=== PATIENT | female | born 1975 | race Caucasian/White ===

== ENCOUNTER 2022-09-02 18:22 | Emergency (ER) | payer MEDICAID, OTHER ==
--- NOTE | 2022-09-02 18:31 | ERPHSYRPT ---
- History of Present Illness Time Seen by Provider: 09/02/22 18:31 Historian: patient Exam Limitations: no limitations Physician History: This is a 47-year-old white female patient who was having intermittent chest pain all day as well as elevated blood pressure. The chest pain has resolved. Her blood pressure was as high as 178/98 with a pulse of 118. Patient does smoke cigarettes daily and she does consume daily caffeine. She has not increased her tobacco or caffeine intake. Patient denies cocaine use. Patient denies amphetamine use. Patient does have a past history of hypertension and was given lisinopril as a prescription. However, she describes having a reaction of angioedema on that medication. She currently is not on any medication for blood pressure. Patient denies shortness of breath at this time. She has no abdominal pain. Patient does states she is under a lot of stress. Timing/Duration: today Quality: tightness Chest Pain Radiation: no radiation Severity of Pain-Max: mild Severity of Pain-Current: none (Moderate) Modifying Factors: Improves With: nothing Associated Symptoms: palpitations, No nausea, No vomiting Prior Chest Pain/Cardiac Workup: no prior chest pain, no prior cardiac workup Nitro Today/Relief: no nitro taken today Aspirin Treatment Today: no aspirin today Allergies/Adverse Reactions: Penicillins Allergy (Verified 09/02/22 18:25) Home Medications: No Reportable Medications [No Reported Medications] 09/02/22 [History] Travel Risk - International Travel Have you traveled outside of the country in past 3 weeks: No - Coronavirus Screening Are you exhibiting any of the following symptoms?: No Close contact with a COVID-19 positive Pt in past 14-21 Days: No - Review of Systems Constitutional: No Symptoms Eyes: No Symptoms Ears, Nose, & Throat: No Symptoms Respiratory: No Symptoms Cardiac: Chest Pain, Palpitations Abdominal/Gastrointestinal: No Symptoms Genitourinary Symptoms: No Symptoms Musculoskeletal: No Symptoms Skin: No Symptoms Neurological: No Symptoms Psychological: Anxiety, Other (Patient is under a lot of stress) Endocrine: No Symptoms Hematologic/Lymphatic: No Symptoms Immunological/Allergic: No Symptoms All Other Systems: Reviewed and Negative - Past Medical History Pertinent Past Medical History: Yes - Nursing Vital Signs Nursing Vital Signs: Initial Vital Signs Temperature 99.1 F 09/02/22 18:26 Pulse Rate 127 H 09/02/22 18:26 Respiratory Rate 18 09/02/22 18:26 Blood Pressure 174/84 09/02/22 18:26 O2 Sat by Pulse Oximetry 100 09/02/22 18:26 Pain Scale Pain Intensity 0 - Physical Exam General Appearance: no apparent distress, alert, anxiety Eye Exam: PERRL/EOMI, eyes nml inspection Ears, Nose, Throat Exam: normal ENT inspection, moist mucous membranes Neck Exam: normal inspection, non-tender, supple, full range of motion Respiratory Exam: normal breath sounds, lungs clear, airway intact, No chest tenderness, No respiratory distress Cardiovascular Exam: tachycardia Gastrointestinal/Abdomen Exam: soft, normal bowel sounds, No tenderness Pelvic Exam: not done Rectal Exam: not done Back Exam: normal inspection, normal range of motion, No CVA tenderness, No vertebral tenderness Extremity Exam: normal inspection, normal range of motion, pelvis stable Neurologic Exam: alert, oriented x 3, cooperative, 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, normal mood/affect, nml cerebellar function, nml station & gait, sensation nml Skin Exam: normal color, warm, dry Lymphatic Exam: No adenopathy SpO2 Interpretation: normal O2 Delivery: Room Air - Course Nursing assessment & vital signs reviewed: Yes EKG Interpreted by Me: RATE (125), Sinus Tach, NORMAL AXIS, NORMAL INTERVALS, NORMAL QRS, NORMAL ST-T, Other Ordered Tests: Active Orders 24 hr Category Date Time Status Director Of Security STAT Care 09/02/22 18:41 Active EKG-ER Only STAT Care 09/02/22 18:41 Active IV Insertion STAT Care 09/02/22 18:41 Active Pulse Oximetry (ED) STAT Care 09/02/22 18:41 Active CHEST 1 VIEW (PORTABLE) Stat Exams 09/02/22 18:41 Taken CBC W DIFF Stat Lab 09/02/22 19:05 Completed CMP Stat Lab 09/02/22 19:05 Completed D-DIMER QUANTITATIVE Stat Lab 09/02/22 19:05 Completed TROPONIN Q4H Lab 09/02/22 19:05 Completed TROPONIN Q4H Lab 09/02/22 22:45 Ordered TROPONIN Q4H Lab 09/03/22 02:45 Ordered Medication Summary Generic Name Dose Route Start Last Admin Trade Name Freq PRN Reason Stop Dose Admin Potassium Chloride 20 meq 09/02/22 19:51 Potassium Chloride Tab 10 Meq Tab PO 09/02/22 19:52 STAT ONE Discontinued Medications Generic Name Dose Route Start Last Admin Trade Name Kira PRN Reason Stop Dose Admin Aspirin 324 mg 09/02/22 18:41 09/02/22 19:14 Aspirin 81 Mg Tab.Chew PO 09/02/22 18:42 324 mg STAT ONE Administration Aspirin Confirm 09/02/22 19:13 Aspirin 81 Mg Tab.Chew Administered 09/02/22 19:14 Dose 324 mg .ROUTE .STK-MED ONE Labetalol HCl 10 mg 09/02/22 19:13 09/02/22 19:31 Labetalol Hcl 20 Mg/4 Ml Disp.Syringe IV 09/02/22 19:14 10 mg STAT ONE Administration Labetalol HCl Confirm 09/02/22 19:28 Labetalol Hcl 20 Mg/4 Ml Disp.Syringe Administered 09/02/22 19:29 Dose 20 mg IV .STK-MED ONE Lorazepam 1 mg 09/02/22 19:14 09/02/22 19:30 Lorazepam 2 Mg/1 Ml 2 Mg Vial IV 09/02/22 19:15 1 mg STAT ONE Administration Lorazepam Confirm 09/02/22 19:27 Lorazepam 2 Mg/1 Ml 2 Mg Vial Administered 09/02/22 19:28 Dose 2 mg .ROUTE .STK-MED ONE Lab/Rad Data: Laboratory Result Diagrams 09/02/22 19:05 09/02/22 19:05 Laboratory Results 09/02/22 09/02/22 09/02/22 Range/Units 19:05 19:05 19:05 WBC (4.0-10.5) x10^3/uL RBC (4.1-5.4) x10^6/uL Hgb (12.0-16.0) g/dL Hct (35-47) % MCV (78-100) fL MCH (26-32) pg MCHC (32-36) g/dL RDW (11.5-14.0) % Plt Count (150-450) x10^3/uL MPV (7.5-11.0) fL Gran % (36.0-66.0) % Immature Gran % (Auto) (0.00-0.4) % Nucleat RBC Rel Count (0.00-0.1) % Eos # (Auto) (0-0.5) x10^3/uL Immature Gran # (Auto) (0.00-0.03) x10^3u/L Absolute Lymphs (auto) (1.0-4.6) x10^3/uL Absolute Monos (auto) (0.0-1.3) x10^3/uL Absolute Nucleated RBC (0.00-0.01) x10^3u/L Lymphocytes % (24.0-44.0) % Monocytes % (0.0-12.0) % Eosinophils % (0.00-5.0) % Basophils % (0.0-0.4) % Absolute Granulocytes (1.4-6.9) x10^3/uL Basophils # (0-0.4) x10^3/uL D-Dimer 0.28 (0.0-0.50) mg/L Sodium 139 (137-145) mmol/L Potassium 3.2 L (3.5-5.1) mmol/L Chloride 107 (98-107) mmol/L Carbon Dioxide 19 L (22-30) mmol/L Anion Gap 16.9 H (5-15) MEQ/L BUN 10 (7-17) mg/dL Creatinine 0.68 (0.52-1.04) mg/dL Estimated GFR > 60.0 ML/MIN Glucose 105 (74-106) mg/dL Calcium 9.9 (8.4-10.2) mg/dL Total Bilirubin 1.70 H (0.2-1.3) mg/dL AST 22 (14-36) U/L ALT 19 (0-35) U/L Alkaline Phosphatase 111 (38-126) U/L Troponin I < 0.012 (0.000-0.034) ng/mL Serum Total Protein 8.3 H (6.3-8.2) g/dL Albumin 4.6 (3.5-5.0) g/dL 09/02/22 Range/Units 19:05 WBC 13.9 H (4.0-10.5) x10^3/uL RBC 5.51 H (4.1-5.4) x10^6/uL Hgb 15.8 (12.0-16.0) g/dL Hct 47.6 H (35-47) % MCV 86.4 (78-100) fL MCH 28.7 (26-32) pg MCHC 33.2 (32-36) g/dL RDW 14.2 H (11.5-14.0) % Plt Count 273 (150-450) x10^3/uL MPV 9.6 (7.5-11.0) fL Gran % 56.7 (36.0-66.0) % Immature Gran % (Auto) 0.2 (0.00-0.4) % Nucleat RBC Rel Count 0.0 (0.00-0.1) % Eos # (Auto) 0.09 (0-0.5) x10^3/uL Immature Gran # (Auto) 0.03 (0.00-0.03) x10^3u/L Absolute Lymphs (auto) 4.80 H (1.0-4.6) x10^3/uL Absolute Monos (auto) 1.06 (0.0-1.3) x10^3/uL Absolute Nucleated RBC 0.00 (0.00-0.01) x10^3u/L Lymphocytes % 34.5 (24.0-44.0) % Monocytes % 7.6 (0.0-12.0) % Eosinophils % 0.6 (0.00-5.0) % Basophils % 0.4 (0.0-0.4) % Absolute Granulocytes 7.89 H (1.4-6.9) x10^3/uL Basophils # 0.05 (0-0.4) x10^3/uL D-Dimer (0.0-0.50) mg/L Sodium (137-145) mmol/L Potassium (3.5-5.1) mmol/L Chloride (98-107) mmol/L Carbon Dioxide (22-30) mmol/L Anion Gap (5-15) MEQ/L BUN (7-17) mg/dL Creatinine (0.52-1.04) mg/dL Estimated GFR ML/MIN Glucose (74-106) mg/dL Calcium (8.4-10.2) mg/dL Total Bilirubin (0.2-1.3) mg/dL AST (14-36) U/L ALT (0-35) U/L Alkaline Phosphatase (38-126) U/L Troponin I (0.000-0.034) ng/mL Serum Total Protein (6.3-8.2) g/dL Albumin (3.5-5.0) g/dL - Progress Progress: improved, re-examined Progress Note: 09/02/22 19:53 Chest x-ray was interpreted by me. There is no evidence of any acute cardiopulmonary process. Blood Culture(s) Obtained: No Antibiotics given: No Counseled pt/family regarding: lab results, diagnosis, need for follow-up, rad results Medical Desision Making - Discussion of managment Reviewed:: Test results Agreed on:: Treatment plan, need for follow-up - Diagnostic Testing Diagnostic test were ordered, analyzed, and reviewed by me: Yes Radiological Interpretation: Interpreted by me - Risk of complications Low Risk: Low risk of morbidity from additional dx testing or treatment - Departure Departure Disposition: Home Clinical Impression: Hypertension, Anxiety about health, Stress at home, Non-cardiac chest pain Condition: Stable Critical Care Time: No Additional Instructions: Drink plenty fluids. Smoking cessation. Decrease your caffeine intake. Keep a morning noon and night daily log of your blood pressure readings for 48 hours. Call your primary care provider tomorrow morning, 09/03/2022 to make a follow-up appointment within the next 3 to 5 days.
[2022-09-02] MEDS ORDERED: BABY ASPIRIN 81 MG CHEW PO ONE (18:41)
[2022-09-02] MEDS ORDERED: BABY ASPIRIN 81 MG CHEW ONE (19:13)
[2022-09-02] MEDS ORDERED: TRANDATE 20 MG/4 ML SYRINGE IV ONE ×2 (19:13→19:28)
[2022-09-02] MEDS ORDERED: Ativan 2 MG/1 ML VIAL IV ONE (19:14)
[2022-09-02 19:16] LABS: Absolute Neutrophil Ct (ANC) 7.89 x10^3/uL (1.4-6.9); BASOPHIL % 0.4 % (0.0-0.4); Basophil (Absolute #) 0.05 x10^3/uL (0-0.4); Eosinophil % 0.6 % (0.00-5.0); Eosinophil (Absolute #) 0.09 x10^3/uL (0-0.5); Hematocrit 47.6 % (35-47); Hemoglobin 15.8 g/dL (12.0-16.0); IMMATURE GRAN # 0.03 x10^3u/L (0.00-0.03); IMMATURE GRAN % 0.2 % (0.00-0.4); Lymphocytes % 34.5 % (24.0-44.0); Mean Cell Volume 86.4 fL (78-100); Mean Corpuscular Hemoglobin 28.7 pg (26-32); Mean Corpuscular Hgb Concent. 33.2 g/dL (32-36); Mean Platelet Volume 9.6 fL (7.5-11.0); Monocyte (Absolute #) 1.06 x10^3/uL (0.0-1.3); Monocytes % 7.6 % (0.0-12.0); Neutrophil % 56.7 % (36.0-66.0); Platelet Count 273 x10^3/uL (150-450); Red Blood Count 5.51 x10^6/uL (4.1-5.4); Red Cell Distribution Width 14.2 % (11.5-14.0); White Blood Count 13.9 x10^3/uL (4.0-10.5)
[2022-09-02 19:26] LABS: ALBUMIN 4.6 g/dL (3.5-5.0); ALKALINE PHOSPHATASE 111 U/L (38-126); ANION GAP 16.9 MEQ/L (5-15); BLOOD UREA NITROGEN 10 mg/dL (7-17); CHLORIDE 107 mmol/L (98-107); Calcium 9.9 mg/dL (8.4-10.2); Carbon Dioxide 19 mmol/L (22-30); Creatinine 1 0.68 mg/dL (0.52-1.04); EST GLOMERULAR FILTRATION RATE > 60.0 ML/MIN; Glucose 105 mg/dL (74-106); Potassium 3.2 mmol/L (3.5-5.1); SGOT/AST 22 U/L (14-36); SGPT/ALT 19 U/L (0-35); SODIUM 139 mmol/L (137-145); Total Protein 8.3 g/dL (6.3-8.2)
[2022-09-02] MEDS ORDERED: Ativan 2 MG/1 ML VIAL ONE (19:27)
[2022-09-02] MEDS ORDERED: Klor Con PO ONE ×2 (19:51→19:58)
[2022-09-02 20:38] VITALS: BP 146/75; PULSE 87; O2SAT 98
--- NOTE | 2022-09-03 08:47 | XRAY ---
Indication: Chest pain. High blood pressure. Comparison: None Portable chest demonstrates normal heart, lungs, and bony thorax.
== END 2022-09-02 20:38 | disposition home or self-care (01) ==
LOC: ED 18:22
DX: I10 Essential (primary) hypertension (principal); R07.89 Other chest pain; F45.9 Somatoform disorder, unspecified; Z63.8 Other specified problems related to primary support group
CPT/HCPCS: 36000; 36415; 71045; 80053; 84484; 85025; 85379; 93005; 93041; 94760; 96374; 96375; 99284; J2060; A9270-GY

== ENCOUNTER 2023-02-03 17:42 | Emergency (ER) | payer OTHER ==
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
[2023-02-03 17:56] VITALS: TEMP 97.2
[2023-02-03] MEDS ORDERED: Ativan 2 MG/1 ML VIAL IV ONE (18:25)
[2023-02-03] MEDS ORDERED: Ativan 2 MG/1 ML VIAL ONE (18:38)
[2023-02-03 18:48] LABS: Absolute Neutrophil Ct (ANC) 7.32 x10^3/uL (1.4-6.9); BASOPHIL % 0.5 % (0.0-0.4); Basophil (Absolute #) 0.07 x10^3/uL (0-0.4); Eosinophil (Absolute #) 0.28 x10^3/uL (0-0.5); Hematocrit 41.8 % (35-47); Hemoglobin 13.9 g/dL (12.0-16.0); IMMATURE GRAN # 0.04 x10^3u/L (0.00-0.03); IMMATURE GRAN % 0.3 % (0.00-0.4); Lymphocyte (Absolute #) 4.92 x10^3/uL (1.0-4.6); Lymphocytes % 35.8 % (24.0-44.0); Mean Cell Volume 90.9 fL (78-100); Mean Corpuscular Hemoglobin 30.2 pg (26-32); Mean Corpuscular Hgb Concent. 33.3 g/dL (32-36); Mean Platelet Volume 9.4 fL (7.5-11.0); Monocyte (Absolute #) 1.13 x10^3/uL (0.0-1.3); Monocytes % 8.2 % (0.0-12.0); Neutrophil % 53.2 % (36.0-66.0); Platelet Count 301 x10^3/uL (150-450); Red Cell Distribution Width 13.3 % (11.5-14.0); White Blood Count 13.8 x10^3/uL (4.0-10.5)
[2023-02-03 19:02] LABS: ALBUMIN 4.2 g/dL (3.5-5.0); ALKALINE PHOSPHATASE 75 U/L (38-126); ANION GAP 12.5 MEQ/L (5-15); BLOOD UREA NITROGEN 13 mg/dL (7-17); CHLORIDE 104 mmol/L (98-107); Calcium 8.9 mg/dL (8.4-10.2); Carbon Dioxide 25 mmol/L (22-30); Creatinine 1 0.72 mg/dL (0.52-1.04); EST GLOMERULAR FILTRATION RATE > 60.0 ML/MIN; Glucose 99 mg/dL (74-106); Potassium 3.6 mmol/L (3.5-5.1); SGOT/AST 17 U/L (14-36); SGPT/ALT 15 U/L (0-35); SODIUM 138 mmol/L (137-145)
[2023-02-03 19:21] LABS: Eosinophil 2 % (0.00-3.0); Lymphocytes 40 % (24-44); Monocyte 5 % (0.0-12.0); Neutrophils 53 % (36.0-66.0); Total Cells Counted 100
[2023-02-03 19:22] LABS: Platelet Estimate NORMAL (NORMAL)
[2023-02-03 19:41] VITALS: PULSE 72
[2023-02-03 19:42] VITALS: BP 131/62; RESP 21; O2SAT 94
== END 2023-02-03 19:53 | disposition home or self-care (01) ==
LOC: ED 17:42
DX: I10 Essential (primary) hypertension (principal); F45.9 Somatoform disorder, unspecified; Z79.899 Other long term (current) drug therapy; Z28.310 Unvaccinated for COVID-19; Z72.0 Tobacco use
CPT/HCPCS: 36000; 36415; 80053; 84484; 85025; 93005; 94760; 96374; 99284; J2060